=== PATIENT | female | born 1960 | race Caucasian/White ===

== ENCOUNTER 2018-11-21 05:18 | Inpatient (IN) ==
[2018-11-21] MEDS ORDERED: Dexamethasone Inj 20 MG/5 ML Vial IV.PUSH ONE (06:02)
[2018-11-21] MEDS ORDERED: Chlorhexidine Gluconate 2% 1 Pack (2 Cloths) TOPICAL ONE (06:10)
[2018-11-21] MEDS ORDERED: Metoprolol Tartrate 25 MG Tablet PO ONE (06:10)
[2018-11-21] MEDS ORDERED: Chlorhexidine 4% Topical 120 APPLIC/120 ML Bottle TOPICAL SCH (06:15)
[2018-11-21] MEDS ORDERED: Propofol Inj 500 MG/50 ML Vial ONE (06:50)
[2018-11-21] MEDS ORDERED: ceFAZolin 2 GM Premix Inj 2 GM/50 ML PIGGYBACK IV.SIG SCH (07:00)
[2018-11-21] MEDS ORDERED: Vancomycin Inj 1,000 MG in Sodium Chlor 0.9% Inj 250 ML IV.SIG SCH (07:00)
[2018-11-21] MEDS ORDERED: Sodium Chlor 0.9% Inj 500 ML IV.SIG SCH (07:00)
[2018-11-21] MEDS ORDERED: Bupivacaine Liposomal PF 1.3% Inj 20 ML Vial ONE (07:56)
[2018-11-21] MEDS ORDERED: TRANEXAMIC ACID IV.SIG SCH (08:30)
[2018-11-21] MEDS ORDERED: Sodium Chlor 0.9% Inj 73.07 ML, Ropivacaine 0.5% PF Inj 24.63 ML, Ketorolac Inj 30 MG, ... P-ARTICULR SCH ×5 (08:30)
[2018-11-21] MEDS ORDERED: SODIUM CHLOR 0.9% IV.SIG SCH (08:30)
[2018-11-21] MEDS ORDERED: Bupivacaine Liposomal PF 1.3% Inj 20 ML Vial INFILTRATN ONE (09:13)
[2018-11-21] MEDS ORDERED: Sugammadex Inj 200 MG/2 ML Vial IV.PUSH ONE (09:58)
[2018-11-21] MEDS ORDERED: Nitroglycerin SL (Override) 0.4 MG Tab SL PRN (10:06)
[2018-11-21] MEDS ORDERED: Aluminum/Magnesium/Simethacone Susp 30 ML UDC PO PRN (10:10)
[2018-11-21] MEDS ORDERED: Post-op Orders (for Pharmacy) OTHER STA (10:10)
[2018-11-21] MEDS ORDERED: Bisacodyl 10 MG Supp RECTAL PRN (10:10)
[2018-11-21] MEDS ORDERED: Morphine Inj 4 MG/ML Vial IV.PUSH PRN (10:10)
[2018-11-21] MEDS ORDERED: Zolpidem Tartrate 5 MG Tablet PO PRN (10:10)
--- NOTE | 2018-11-21 10:19 | P.OP ---
- Preoperative Diagnosis (1) Osteoarthritis of right knee - Postoperative Diagnosis (1) Osteoarthritis of right knee Date of procedure: 11/21/18 Procedure: Right total knee arthroplasty Anesthesia: GETA Surgeon: Quentin Nunes MD Photography Colorist: ESTELLA Duran The surgical procedure was assisted by my Advanced Registered Nurse Practitioner. My AUTOMATIC PROFILE SHAPER OPERATOR presence was necessary throughout this case for the manipulation and positioning of the surgical extremity. My AUTOMATIC PROFILE SHAPER OPERATOR was assisting me throughout the duration of this procedure. The skill set of an Advance Registered Nurse Practitioner was medically necessary to complete this procedure. During the surgical case, the surgical product sales consultant was working at the back table and the Advance Registered Nurse Practitioner was directly assisting me. Operation and Findings: IMPLANTS: DePuy Attune: Patella: size 35. Femur, posterior stabilized size 6. Tibia, rotating platform size 5. Tibial insert, rotating platform, posterior stabilized size 7 mm thickness. ESTIMATED BLOOD LOSS: 100 cc TOURNIQUET TIME: 52 minutes at 250 mmHg pressure. JUSTIFICATION FOR PROCEDURE: The patient has end-stage osteoarthritis to the knee. There is an attached conservative measures pathway form in the chart that describes the nonoperative measures that were undertaken prior to consideration of surgical management. The patient understood the risks and benefits of surgical management. See my office notes for further details PROCEDURE: The patient was brought back to the operative theatre. Adequate anesthesia was obtained. The patient received intravenous vancomycin and Ancef. The lower extremity was prepped and draped in the usual sterile fashion.The leg was exsanguinated, the tourniquet was raised. A standard anterior incision was performed followed by medial parapatellar arthrotomy was performed. End-stage arthritis was identified. Osteotomy of the patella was performed. We drilled holes for the patella. We trialed the patella component. We placed an intramedullary guide into the distal femur. We ultimately resected 13 mm off of the distal femur in 5 degrees of valgus. The remnants of the ACL and PCL were resected. Osteotomy of the proximal tibia was performed, resecting 9 mm off of the medial side. This was done with 3 degrees of posterior slope using an extramedullary guide. The distal end of the guide was placed in the mid aspect of the ankle. The femur was sized, and four chamfer cuts were completed in 3 of external rotation. We then cut the central box in the distal femur to replace the PCL. We resected the remnants of the menisci and removed osteophytes off of the femur and tibia. We then trialed the knee. We punched the tibia for the keel, and then used standard technique to cement in components. Excess cement was removed. We trialed the knee again and the final polyethylene thickness was chosen to provide extension to 0 degrees, and flexion of 140 degrees to gravity. The ligaments were appropriately balanced. Lateral release was necessary to obtain excellent patellofemoral tracking. The tourniquet was released and adequate hemostasis was obtained. An intra- articular injection of a ropivacaine cocktail was injected. Note that this patient did not have a successful block introduced due to difficult visualization by anesthesia and therefore we gave separate injection of Experel into the skin. The posterior knee was inspected for excess cement, which was removed. The final polyethylene was put into position after thorough irrigation. We then closed deep fascia with a #2 Stratafix followed by skin with 2-0 Vicryl followed by Dermabond dressing. Postop plan is to weight-bear as tolerated. DVT prophylaxis will be performed with SCDs, SUSANNA guadarrama, early mobilization, and Lovenox for approximately 10 days with resumption of Effient following that.
[2018-11-21] MEDS ORDERED: fentaNYL Citrate Inj 100 MCG/2 ML Ampul ONE (10:46)
[2018-11-21] MEDS ORDERED: *morphine SULFATE 4 MG/ML PERIprocedure ONLY ONE ×2 (10:52→10:57)
[2018-11-21] MEDS: Sod Chloride 0.9% Inj 1,000 ML IV.CONT SCH (11:00)
--- NOTE | 2018-11-21 11:01 | XR ---
EXAM DATE: 11/21/2018 10:56 AM EST AGE/SEX: 58 years / Female INDICATIONS: Post op right knee replacement. CLINICAL DATA: This is the patient's initial encounter. Patient reports that signs and symptoms have been present for 1 day and indicates a pain score of 6/10. MEDICAL/SURGICAL HISTORY: Hypertension. . Cardiac stent. COMPARISON: POI, XR KNEE COMPLETE, RIGHT, 03/23/2018. . FINDINGS: Status post placement of a knee prosthesis. There is good position and alignment of the knee prosthes is. Postsurgical changes are demonstrated. CONCLUSION: Good position and alignment on this postoperative study. Electronically signed by: Piero Avelar MD Board Certified Radiologist 11/21/2018 11:00 AM EST
[2018-11-21] MEDS ORDERED: *Meperidine Inj 25 MG/ML Vial PERIprocedural Use ONLY ONE (11:06)
[2018-11-21] MEDS ORDERED: TRANEXAMIC ACID IV.SIG ONE (12:00)
[2018-11-21] MEDS ORDERED: SODIUM CHLOR 0.9% IV.SIG ONE (12:00)
[2018-11-21] MEDS: ceFAZolin 1 GM Premix Inj 1 GM/50 ML PIGGYBACK IV.SIG SCH ×2 (15:12→20:23)
[2018-11-21] MEDS: Lisinopril 20 MG Tablet PO SCH (20:27)
[2018-11-21] MEDS: Multivitamin/Minerals Therapeutic Tablet PO SCH (20:27)
[2018-11-21] MEDS: Senna/Docusate Sodium 8.6/50 MG Tablet PO SCH (20:27)
[2018-11-21] MEDS: hydroCHLOROthiazide 25 MG Tablet PO SCH (20:30)
[2018-11-21] MEDS ORDERED: Non-Formulary Drug (Lisinopril-Hydrochlorothiazide [Lisinopril-Hydrochlorothiazide] 1 TAB) PO SCH (21:00)
[2018-11-22] MEDS: Sod Chloride 0.9% Inj 1,000 ML IV.CONT SCH (01:05)
[2018-11-22] MEDS: ceFAZolin 1 GM Premix Inj 1 GM/50 ML PIGGYBACK IV.SIG SCH (01:15)
[2018-11-22 04:22] LABS: Hemoglobin 9.2 gm/dL (11.6-15.3)
--- NOTE | 2018-11-22 07:32 | P.PNOP ---
Subjective Interval history: Patient is resting comfortably in bed with minimal pain to the right knee. The patient states she does want to go home today. Physical Exam Vital signs: Vital Signs 11/21/18 10:42 11/21/18 11:00 11/21/18 11:17 Temperature 98.1 F Pulse Rate 83 77 82 Respiratory Rate 20 18 18 Blood Pressure 143/70 H 150/67 H 130/76 Pulse Oximetry 98 99 99 11/21/18 11:31 11/21/18 11:45 11/21/18 12:00 Temperature 98.2 F 97.1 F L Pulse Rate 82 80 77 Respiratory Rate 22 18 16 Blood Pressure 137/69 152/66 H 135/73 Pulse Oximetry 97 98 97 11/21/18 16:00 11/21/18 19:21 11/21/18 20:27 Temperature 98.2 F 98.7 F Pulse Rate 92 H 89 Respiratory Rate 20 18 19 Blood Pressure 107/55 L 112/56 L Pulse Oximetry 96 97 11/21/18 20:56 11/21/18 23:10 11/22/18 02:18 Temperature 98.2 F Pulse Rate 89 Respiratory Rate 19 18 18 Blood Pressure 109/53 L Pulse Oximetry 98 11/22/18 04:07 11/22/18 04:55 Temperature 97.6 F Pulse Rate 77 Respiratory Rate 18 18 Blood Pressure 124/55 L Pulse Oximetry 96 Intake & Output 11/21/18 11/22/18 11/22/18 18:59 06:59 18:59 Intake Total 1561.35 / 1561.35 1580 / 1580 Output Total 200 / 200 Balance 1361.35 / 1361.35 1580 / 1580 Weight 113.469 kg 113.4 kg Intake: IV 1461.35 / 1461.35 1100 / 1100 NS Inj 1,000 ML @ 80 mls/hr IV. 1000 / 1000 CONT .[id number] TER[facility] Rx#:[id number] LR 1000 mL Inj 1,000 ML @ 30 1000 / 1000 mls/hr IV.SIG .Q24H [facility] Rx#: [id number] Cyklokapron Inj 1,135 MG In NS 111.35 / 111.35 Inj 100 ML @ 200 mls/hr IV.SIG ONCE [facility] Rx#:[id number] Vancomycin Inj 1,000 MG In NS 250 / 250 Inj 250 ML @ 250 mls/hr IV.SIG MARKETING PRODUCTION MANAGER TERESA Rx#:[id number] Ancef 1 GM Premix Inj 1 gm In 50 / 50 100 / 100 50 ml @ 100 mls/hr IV.SIG Q6H [facility] Rx#:[id number] Ancef 2 GM Premix Inj 2 gm In 50 / 50 50 ml @ 100 mls/hr IV.SIG MARKETING PRODUCTION MANAGER TERESA Rx#:[id number] Oral 480 / 480 Anesthesia Amount 100 / 100 Output: Estimated Blood Loss 200 / 200 Other: # Voids 2 2 Date of Last Bowel Movement 11/21/18 11/21/18 # Bowel Movements 0 Weight On Admission 167.64 kg Narrative: The patient's dressing is intact with a small amount of serosanguineous drainage. The dressing was removed and a new dressing was applied. There is no redness or signs of infection. The patient's incision is well approximated. EHL/TA/G are intact. 2+ pedal pulse. The patient's calf is soft and nontender. Sensation is intact to light touch distally. Results - Labs CBC & Chem 7: 11/22/18 04:02 Laboratory Results - last 24 hr 11/21/18 11/22/18 06:30 04:02 Hgb 9.2 L Hct 28.0 L Antibody Screen Negative - Imaging Impressions Knee X-Ray 11/21/18 10:08 CONCLUSION: Good position and alignment on this postoperative study. - Procedures Right total knee arthroplasty Assessment and Plan - Assessment and Plan POD #1: [Right] total knee arthroplasty 1. Weightbearing as tolerated on [right] lower extremity. 2. Lovenox for 10 days followed by resumption of Effient for DVT prophylaxis. 3. Ice as needed for swelling. 4. Stable per ortho for discharge home today. The patient will receive physical therapy from [facility]. 5. The patient will follow up with Dr. Nunes and/or ESTELLA Main as previously scheduled.
[2018-11-22] MEDS ORDERED: Dexamethasone Inj 20 MG/5 ML Vial IV.PUSH ONE (08:00)
[2018-11-22] MEDS: hydroCHLOROthiazide 25 MG Tablet PO SCH (08:47)
[2018-11-22] MEDS: Lisinopril 20 MG Tablet PO SCH (08:48)
[2018-11-22] MEDS: Multivitamin/Minerals Therapeutic Tablet PO SCH (08:48)
[2018-11-22] MEDS: Senna/Docusate Sodium 8.6/50 MG Tablet PO SCH (08:48)
[2018-11-22] MEDS ORDERED: Atenolol 25 MG Tablet PO SCH (09:00)
[2018-11-22] MEDS ORDERED: Divalproex 250 MG ER Tablet PO SCH (09:00)
[2018-11-22] MEDS ORDERED: Enoxaparin Inj 40 MG/0.4 ML Syringe SQ SCH (10:00)
[2018-11-22 14:54] VITALS: BP 119/59; PULSE 77; RESP 16; TEMP 97.8; O2SAT 98
--- NOTE | 2018-11-23 15:10 | P.DS ---
Date of admission: 11/21/18 10:17 Primary care physician: Avelino Verduzco Attending physician on discharge: Quentin Mcguire Anticipated date of discharge: 11/22/18 Brief History from admission: The patient was admitted to the hospital with severe osteoarthritis of the right knee to have a right total knee arthroplasty. DS: Summary Hospital Course: The patient was admitted to the hospital for severe osteoarthritis of the [right ] knee to have a [right] total knee arthroplasty. The patient's surgery went well with no complication. The patient is on a [regular] diet. The patient's DVT prophylaxis includes use of Lovenox for 10 days and then resume Effient. The patient is weightbearing as tolerated. The patient was discharged home with physical therapy ([facility]) and will follow up in the office with Dr. Mcguire and/or ESTELLA Main as previously scheduled. - Time Spent with Patient Total time spent providing and/or coordinating discharge services: Greater than 30 minutes - Quality: VTE Deep Vein Thrombosis/Pulmonary Embolism Present on Admission: No Exam Vital signs: Intake & Output 11/22/18 11/23/18 11/23/18 18:59 06:59 18:59 Other: Date of Last Bowel Movement 11/21/18 Narrative: The patient's dressing is intact with a small amount of serosanguineous drainage. The dressing was removed and a new dressing was applied. There is no redness or signs of infection. The patient's incision is well approximated. EHL/TA/G are intact. 2+ pedal pulse. The patient's calf is soft and nontender. Sensation is intact to light touch distally. Results Procedures completed during hospitalization: Right total knee arthroplasty - Impressions ITS Impressions Knee X-Ray 11/21/18 10:08 CONCLUSION: Good position and alignment on this postoperative study. Discharge Plan - Discharge Disposition Patient Disposition: 01 Discharge Home - Discharge Condition Condition: Stable - Discharge Order Discharge Orders: Discharge Order (Routine); Ordered 11/21/18 Ordered By: Brant Hassan - Discharge Details Anticipated Discharge Date: 11/22/18 - Physicians Team Primary Care Provider: Avelino Verduzco Attending Provider: Quentin Mcguire - Rxs /Orders / Referrals /Forms Prescriptions: Continue atenolol 25 mg Tablet 25 mg PO DAILY colchicine [Mitigare] 0.6 mg Capsule 0.6 mg PO BID cyanocobalamin (vitamin B-12) [Vitamin B-12] 2,500 mcg Tablet, Sublingual 2,500 mcg SUBLINGUAL DAILY divalproex 250 mg Tablet Extended Release 24 Hr 250 mg PO DAILY duloxetine [Cymbalta] 30 mg Capsule,Delayed Release(Dr/Ec) 30 mg PO BID lisinopril-hydrochlorothiazide 20-12.5 mg Tablet 1 tab PO BID lisinopril-hydrochlorothiazide 20-12.5 mg Tablet 1 tab PO BID nitroglycerin [Nitrostat] 0.4 mg Tablet, Sublingual 0.4 mg SUBLINGUAL Q5-15M PRN (Reason: Chest Pain) Discontinued aspirin [Adult Low Dose Aspirin] 81 mg Tablet,Delayed Release (Dr/Ec) 81 mg PO DAILY celecoxib [Celebrex] 200 mg Capsule 200 mg PO BID fish,bora,flax oils-om3,6,9no1 [[place] 3-6-9] 1,200 mg Capsule 1 cap PO BID lutein 40 mg Capsule 40 mg PO DAILY yvbjrbrvukki-uxe-vqry-FA-vit K [Adults Multivitamin] 18 mg iron-400 mcg-25 mcg Tablet 1 tab PO DAILY prasugrel 5 mg Tablet 10 mg PO DAILY prednisone 5 mg Tablet 5 mg PO DAILY PRN (Reason: gouty arthritis flairups) Ambulatory Orders / Order Sets / DME: Adjustable Commode 3-in-1 (1 each) (Routine) Location: Determined by Patient Ordered By: Brant Hassan CPM - Continuous Passive Motion Machine (1 each) (Routine) Location: Determined by Patient Ordered By: Brant Hassan Walker With Front Wheels (1 each) (Routine) Location: Determined by Patient Ordered By: Brant Hassan Referrals: Quentin Mcguire MD [Physician] - See Instructions (F/U in the office with Dr. Mcguire or Libertad Hassan APRN as previously scheduled. ) Avelino Verduzco MD [Primary Care Provider] - See Instructions - Discharge Instructions Patient Printed Instructions: How to Use an Incentive Spirometer (DC), How to Choose and Use a Walker (GEN), SUSANNA Hose (DC), Continuous Passive Motion Machine (DC), Knee Replacement (DC) Additional Instructions: Full weight bearing to right lower extremity Wear Canvas Knee splint at night for 4 weeks Patient has pain meds and Lovenox prescriptions as provided to patient prior to surgery from office Home Health physical therapy arrangements made as well NO Dressing changes per surgeon; March Shower beginning on Monday Follow up appointment with Dr Mcguire 12/06 at 9:30 am at [facility] PATIENT BEING SENT HOME WITH PRIMAPORE DRESSINGS IN CASE OF NEED PER DR. MCGUIRE AND LIBERTAD PUENTE.
== END 2018-11-22 13:36 | disposition home or self-care (01) | DRG 470 ==
LOC: HSDC 05:18 → EDSTATUS 08:30 → HSDI 10:17 → N06 12:09
PROVIDERS: ADMIT Orthopaedic Surgery; ATTEND Orthopaedic Surgery
CPT/HCPCS: 73560; 85014; 85018; 86850; 86900; 86901; 94150; 97110; 97116; 97162; 97166; C1776; C9290; J0131; J0171; J0690; J0735; J1100; J1580; J1650; J1885; J2175; J2250; J2270; J2704; J2795; J3010; J3370; J7030; J7050; J7120; L1830